=== PATIENT | male | born 1985 | race Two or more races ===

== ENCOUNTER 2016-04-11 16:09 | Emergency (ER) | payer MEDICARE ==
[2016-04-11 16:15] VITALS: BMI 23.3
--- NOTE | 2016-04-11 16:53 | EDPRACDOC ---
- General Information Chief Complaint: Flu-Like Symptoms Stated Complaint: FLU SYMPTOMS Time Seen by Provider: 04/11/16 16:37 Mode Of Arrival: Car Home Medications: Home Medications Hydrocodone Bit/Acetaminophen [Lortab 5/325] 1 tab PO Q6H PRN #14 tab 09/08/15 Ketorolac Tromethamine [Toradol] 10 mg PO Q6H PRN #20 tab 09/08/15 Oxycodone HCl [Roxicodone] 5 mg PO Q4-6H PRN #15 tablet 09/08/15 Promethazine [Phenergan] 25 mg PO Q8H PRN #30 tab 09/08/15 Acetaminophen with Codeine [TYLENOL WITH CODEINE; [employer] with Codeine] 5 ml PO Q4-6H PRN #120 ml 04/11/16 Ibuprofen 600 mg PO TID #20 tablet 04/11/16 Ondansetron HCl [Zofran] 4 mg PO Q6H PRN #20 tab 04/11/16 Oseltamivir Phosphate [Tamiflu] 75 mg PO BID #10 capsule 04/11/16 Allergies/Adverse Reactions: Allergies Allergy/AdvReac Type Severity Reaction Status Date / Time No Known Drug Allergies Allergy Unknown Verified 09/08/15 06:51 - History of Present Illness Onset: 2 DAYS HPI: PT PRESENTS TODAY WITH FEVER, GENERAL MALAISE, MILD COUGH AND NAUSEA X 2 DAYS. DENIES BUSTILLOS, NECK PAIN, ENT SYMPTOMS, CP, SHOB, ABD PAIN, VOMITING/DIARRHEA. NO PMH/MEDS. Shortness of Breath: None Relevant History of: Reports: None Cough: Reports: Non-productive Rhinorrhea: Reports: None Fever Severity/Quality: Reports: greater than 100.5 F Ear Symptoms: Reports: None Associated Signs & Symptoms: Reports: Cough, Fever, Nausea, Myalgia Oral Intake: Normal Urinary Output: Normal ED Past Medical History - History Reviewed Yes Nurses notes reviewed and agree except as marked - Social Medical History Smoking Status: Heavy tobacco smoker (5 or more cigarettes/day or daily pipe/ cigar) EDM Review of Systems - Review of Systems ROS Negative Except as Marked: Yes All systems reviewed and were negative except as marked Constitutional: Fever, Fatigue, Loss of Appetite Eyes: No Symptoms Reported Ears: No Symptoms Reported Throat: No Symptoms Reported Nose: No Symptoms Reported Respiratory: Cough Gastrointestinal: Nausea Genitourinary: No Symptoms Reported Neurological: No Symptoms Reported Musculoskeletal: Other (GENERAL MALAISE) Integumentary: No Symptoms Reported - Physical Exam Constitutional: Alert (Awake), No apparent distress Oriented to: Time, Person, Place Last recorded Vital Signs: Last Vital Signs Temp 100.2 F 04/11/16 16:13 Pulse 111 04/11/16 16:13 Resp 18 04/11/16 16:13 BP 134/79 04/11/16 16:13 Pulse Ox 95 04/11/16 16:13 Oxygen Pulse Oxygen Saturation 95 O2 Device Room Air Oxygen Flow Rate Fraction of Inspired Oxygen ( FIO2) - HEENT Head: Normal Eye Exam: Normal Oropharynx: Normal Tympanic Membrane: Normal ENT EAC: Normal Nose: No Symptoms Reported Neck: Normal, Denies Pain, Midline - Respiratory/Cardiovascular Respiratory: Normal - CTA Cardiovascular: Normal - GI Palpation: Normal Tenderness: Non tender - Musculoskeletal Back: Normal Extremities: Normal - Integumentary Skin: Hot Lymphatics: Normal - Neurologic Cerebellar: Normal Mood Description: Normal Thought: Coherent Perception: Normal Decision Time to Discharge: 16:51 - Departure Disposition: Home Condition: Good Final Diagnosis: Influenza Instructions: Influenza (ED) Education/Counseling Given To: Patient Education/Counseling Given Regarding: Diagnosis, Treatment, Follow Up Referrals: None,No Provider [Primary Care Provider] - One Week Prescriptions: New Acetaminophen with Codeine [TYLENOL WITH CODEINE; [employer] with Codeine] 5 ml PO Q4-6H PRN #120 ml PRN Reason: Pain Ibuprofen 600 mg PO TID #20 tablet Oseltamivir Phosphate [Tamiflu] 75 mg PO BID #10 capsule Ondansetron HCl [Zofran] 4 mg PO Q6H PRN #20 tab PRN Reason: Nausea/Vomiting No Action Hydrocodone Bit/Acetaminophen [Lortab 5/325] 1 tab PO Q6H PRN #14 tab PRN Reason: Pain Ketorolac Tromethamine [Toradol] 10 mg PO Q6H PRN #20 tab PRN Reason: Pain Oxycodone HCl [Roxicodone] 5 mg PO Q4-6H PRN #15 tablet PRN Reason: Breakthrough Pain Promethazine [Phenergan] 25 mg PO Q8H PRN #30 tab PRN Reason: Nausea/Vomiting Forms: Excuse Note Additional Instructions: KEEP MOUTH COVERED AND WASH HANDS FREQUENTLY. THIS IS VERY CONTAGIOUS.
[2016-04-11 17:06] VITALS: BP 128/82; PULSE 104; TEMP 99.6
== END 2016-04-11 17:03 | disposition home or self-care (01) ==
LOC: EDMC 16:09
DX: J11.1 Influenza due to unidentified influenza virus with other respiratory manifestations (principal)
CPT/HCPCS: 99282